=== PATIENT | female | born 1960 | race Caucasian/White ===

== ENCOUNTER 2019-07-30 18:04 | Emergency (ER) | payer MEDICARE, MEDICAID, SELFPAY ==
[2019-07-30 18:29] VITALS: BMI 25.4
[2019-07-30 18:35] VITALS: BP 174/75; PULSE 85; RESP 20; TEMP 37.1; O2SAT 91
--- NOTE | 2019-07-30 18:39 | XR_ITS ---
WS: [id number] CHEST 2 VIEWS HISTORY: SHORTNESS OF BREATH COMPARISON: 01/15/2008 Lungs: Mild hyperinflation. Benign granuloma in the central RIGHT lung measures 10 mm. Acute appearin g rib fracture is present at the RIGHT apex. There is adjacent pleural thickening which may be some h emorrhage. Cardiac size: Normal. Mediastinum/Aorta: Normal mediastinum. Bones: Acute appearing minimally displaced rib fracture involving third rib. XR/XR chest 2V* [id number] IMPRESSION: 1. Acute appearing RIGHT third rib fracture. There is adjacent pleural thicken ing which may be hemorrhage. If there is no history of trauma pathological frac ture is not excluded. Chest CT may be warranted for further evaluation. 2. Chronic emphysema and prior granulomatous disease.
--- NOTE | 2019-07-30 19:08 | ED_ITS ---
HPI - SOB/Dyspnea General: Chief Complaint: Shortness of Breath/Dyspnea Stated Complaint: sob Time Seen by Provider: 07/30/19 19:04 Source: patient Mode of arrival: ambulatory Limitations: no limitations History of Present Illness: HPI Narrative: Patient comes in today for a 2- month history of shortness of breath. Patient reports that she has been on antibiotics 3 different times with some minimal improvement with each round of antibiotic. Patient appears in no acute distress. Patient appears well. Patient appears in no pain. Patient does smoke about a pack a day but has not been smoking within the last week that much. Review of Systems General: Reports: 10 or more systems reviewed and unremarkable except in HPI and below Resp: Reports: shortness of breath PFSH ED PFSH: Social History Smoking and tobacco status: light tobacco smoker Physical Exam Const: COMMON NORMALS: no apparent distress and oriented x3 GENERAL APPEARANCE: cooperative HENMT: COMMON NORMALS: normocephalic, TM's normal bilaterally and external nose normal HEAD & SCALP: normal to inspection and normocephalic NOSE: external nose normal TYMPANIC MEMBRANE: TM's normal bilaterally MOUTH: oral and palatal mucosa normal THROAT: posterior oropharynx normal Eye: GENERAL EYE: normal appearance of both eyes Neck/C-Spine: COMMON NORMALS: full ROM Lymph: LYMPHATIC: no lymphadenopathy noted Chest: COMMONS NORMALS: inspection of chest normal Resp: EFFORT & INSPECTION: Yes able to speak in complete sentences (mild short of breath noted) and Yes symmetric chest movement AUSCULTATION: wheezes scattered wheezes Cardio: COMMON NORMALS: regular rate and regular rhythm RATE: regular rate RHYTHM: regular rhythm GI: COMMON NORMALS: non-tender : COMMON NORMALS: Yes no CVA tenderness BLADDER/KIDNEY EXAM: Yes no CVA tenderness Back/Pelvis: COMMON NORMALS: no CVA tenderness and thoracic and lumbar spine normal to inspection Extremity: COMMON NORMALS: normal to inspection Neuro: COMMON NORMALS: oriented x3 and moves all extremities Psych: COMMON NORMALS: mental status grossly normal and cooperative Skin: COMMON NORMALS: no rashes or lesions noted GENERAL SKIN EXAM: no rashes or lesions noted Course Vital Signs: Vital signs: Vital Signs Temperature 98.8 F 07/30/19 18:35 Pulse Rate 83 07/30/19 20:00 Respiratory Rate 20 H 07/30/19 20:00 Blood Pressure 174/75 07/30/19 18:35 Pulse Oximetry 91 07/30/19 20:00 MDM - SOB/Dyspnea MDM Narrative: Medical decision making narrative: Patient comes in today for complaints of shortness of breath. Patient reports that for the last 2 months she is had a lot of cough and congestion. Patient has been being treated by primary care and [place] but has not improved. Patient appears well. Lungs are coarse with decreased air movement throughout and wheezing. Vital signs are normal except for some elevation in blood pressure. Differential diagnosis includes but not limited to pneumonia, COPD, acute bronchitis, asthma. Chest x-ray noted no significant abnormality. White blood cell count was slightly elevated at 19,000 although this may be high due to medications such as steroids. Remainder of labs were not significant. Patient was treated with ipratropium and albuterol nebulizer treatment and had significant improvement after nebulizer. Patient will be continued on ipratropium albuterol nebulizer treatments and ketorolac as needed for pain. Reviewed with patient necessary treatment for a COPD and need for follow-up. Patient reports understanding agreed to plan and requested pulmonology referral for further evaluation. Lab Data: Labs: Lab Results 07/30/19 07/30/19 07/30/19 Range/Units 19:40 19:40 19:40 WBC 19.4 H (4.0-10.0) 10^3/ uL RBC 4.88 (4.1-5.3) 10^6/u L Hgb 13.3 (11.5-15.3) g/dL Hct 40.8 (37.0-47.0) % MCV 83.6 (81-99) fL MCH 27.3 L (28.0-34.0) pg MCHC 32.6 (30.0-36.0) g/dL RDW 12.8 (12.1-15.1) % Plt Count 413 H (130-400) 10^3/c mm MPV 10.7 H (7.4-10.4) fL Neut % (Auto) 75.3 % Lymph % (Auto) 20.2 % Hutchinson % (Auto) 3.7 % Eos % (Auto) 0.0 % Baso % (Auto) 0.1 % Neut # (Auto) 14.7 H (1.8-7.7) 10^3/u L Lymph # (Auto) 3.9 (0.8-4.8) 10^3/u L Hutchinson # (Auto) 0.7 (0.2-0.9) 10^3/u L Eos # (Auto) 0.0 (0.0-0.8) 10^3/u L Baso # (Auto) 0.0 (0.0-0.1) 10^3/u L Nucleated RBC % (a uto) 0 % Nucleated RBCs # 0.0 /100WBC Sodium 135 L (136-145) mmol/L Potassium 3.8 (3.5-5.1) mmol/L Chloride 95 L (98-107) mmol/L Carbon Dioxide 25 (22-29) mmol/L Anion Gap 18.8 (5-19) BUN 15 (6-20) mg/dL Creatinine 0.7 (0.5-0.9) mg/dL GFR Calculation 85.9 L (90-130) mL/min Glucose 117 H (65-115) mg/dL Calculated Osmolal ity 277 L (285-295) mOsm/k g Calcium 9.9 (8.5-10.5) mg/dL Total Bilirubin 0.2 (0.15-1.2) mg/dL AST 12 (0-32) U/L ALT 9 (0-33) U/L Alkaline Phosphata se 70 (35-105) IU/L Total Protein 8.1 (6.6-8.7) g/dL Albumin 4.4 (3.5-5.2) g/dL Globulin 3.7 (1.3-4.6) g/dL Urine Color Yellow (Yellow) Urine Appearance Clear (CLEAR) Urine pH 7 (5-7) Ur Specific Gravit y 1.005 (1.005-1.030) Urine Protein Neg (Negative) Urine Glucose (UA) Norm (Normal) Urine Ketones Negative (Negative) Urine Blood Neg (Negative) Urine Nitrate Negative (Negative) Urine Bilirubin Neg (NEGATIVE) Urine Urobilinogen Norm (Negative) mg/dL Ur Leukocyte Jessie ase Negative (Negative) Discharge Plan Discharge Patient Disposition: Home, Self-Care Clinical Impression: Acute exacerbation of chronic obstructive airways disease, Pain in rib Condition: Stable Prescriptions: New ipratropium-albuterol 0.5 mg-3 mg(2.5 mg base)/3 mL solution for nebulization 3 ml INHALATION QID Qty: 180 RF: 0 ketorolac 10 mg tablet 10 mg PO Q6H 5 Days Qty: 14 RF: 0 Discharge Orders: Discharge Order (Routine); Ordered 07/30/19 Ordered By: Vishnu Vega Discharge Diet: Usual diet Discharge Activity: Increase activity as tolerated Patient Instructions: Chronic Bronchitis (ED) Activity Restrictions/Additional Instructions: Use new nebulizer medication routinely four times a day, Use albuterol as needed every 4 hours for short of breath, continue medications as directed. Drink plenty of water with medication, Follow-up with primary care in one week. 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
--- NOTE | 2019-07-30 19:10 | ECG_ITS ---
Measurements Intervals Waterfall Rate: 82 P: 66 KS: 189 QRS: 48 QRSD: 86 T: 42 QT: 375 QTc: 440 SINUS RHYTHM POSSIBLE LEFT ATRIAL ENLARGEMENT [-0.1mV P WAVE IN V1/V2] ANTEROSEPTAL MYOCARDIAL INFARCTION , OF INDETERMINATE AGE [40+ ms Q WAVE IN V1-V4] No previous ECG available for comparison Electronically Signed On 07-31-2019 20:29:26 CDT by Zoe Putnam M.D. [email or web address]
[2019-07-30] MEDS: dexamethasone 10 mg/mL INJ IVP (19:35)
[2019-07-30] MEDS: ketorolac 30 mg/mL INJ 15 MG IVP (19:42)
[2019-07-30 19:46] LABS: Basophils % 0.1 %; Hematocrit 40.8 % (37.0-47.0); Hemoglobin 13.3 g/dL (11.5-15.3); Lymphocytes # 3.9 10^3/uL (0.8-4.8); Lymphocytes % 20.2 %; Mean Corpuscular HGB Conc 32.6 g/dL (30.0-36.0); Mean Corpuscular Hemoglobin 27.3 pg (28.0-34.0); Mean Corpuscular Volume 83.6 fL (81-99); Mean Platelet Volume 10.7 fL (7.4-10.4); Monocytes # 0.7 10^3/uL (0.2-0.9); Monocytes % 3.7 %; Neutrophils # 14.7 10^3/uL (1.8-7.7); Neutrophils % 75.3 %; Nucleated Red Blood Cells % 0 %; Platelet Count 413 10^3/cmm (130-400); Red Blood Count 4.88 10^6/uL (4.1-5.3); Red Cell Distribution Width 12.8 % (12.1-15.1); White Blood Count 19.4 10^3/uL (4.0-10.0)
[2019-07-30 19:57] VITALS: PULSE 85; RESP 18; O2SAT 88
[2019-07-30] MEDS: ipratropium-albuterol 3 mL Neb INHALATION (19:59)
[2019-07-30 20:00] VITALS: PULSE 83; RESP 20; O2SAT 91
[2019-07-30 20:00] LABS: Alanine Aminotransferase 9 U/L (0-33); Albumin Level 4.4 g/dL (3.5-5.2); Alkaline Phosphatase 70 IU/L (35-105); Anion Gap 18.8 (5-19); Aspartate Amino Transferase 12 U/L (0-32); Blood Urea Nitrogen 15 mg/dL (6-20); Calcium 9.9 mg/dL (8.5-10.5); Carbon Dioxide 25 mmol/L (22-29); Chloride 95 mmol/L (98-107); Creatinine Clr Calc Pharmacy 76.4482; Globulin 3.7 g/dL (1.3-4.6); Glomerular Filtration Rate 85.9 mL/min (90-130); Glucose 117 mg/dL (65-115); Osmolality Calculated 277 mOsm/kg (285-295); Potassium 3.8 mmol/L (3.5-5.1); Sodium 135 mmol/L (136-145); Total Bilirubin 0.2 mg/dL (0.15-1.2); Total Protein 8.1 g/dL (6.6-8.7)
[2019-07-30 20:05] LABS: Add Urine Microscopic? NO
[2019-07-30 20:21] LABS: Bilirubin Urine Neg (NEGATIVE); Blood Urine Neg (Negative); Glucose Urine UA Norm (Normal); Ketones Urine Negative (Negative); Leukocyte Esterase Urine Negative (Negative); Nitrate Urine Negative (Negative); Protein Urine Neg (Negative); Specific Gravity, Urine 1.005 (1.005-1.030); Urine Appearance Clear (CLEAR); Urine Color Yellow (Yellow); Urobilinogen Urine Norm (Negative); pH Urine 7 (5-7)
[2019-07-30 21:20] VITALS: BP 157/68; PULSE 85; RESP 16; O2SAT 92
--- NOTE | 2019-07-31 13:51 | DCPLANNER ---
regional loss prevention manager had message to schedule a follow up appointment for patient with [facility]. regional loss prevention manager called [facility], spoke with Christelle, gave clinic patients information. A follow up appointment was scheduled for , August 08, 2019 at 11:[address] Welsh. Clinic will call patient with appointment information.
--- NOTE | 2019-09-05 14:17 | DCPLANNER ---
Patients appointment scheduled for 08.08.19 with [facility] was cancelled.
== END 2019-07-30 21:42 | disposition home or self-care (01) ==
PROVIDERS: Emergency Medicine; Emergency Provider Nurse Practitioner Family
DX: J44.1 Chronic obstructive pulmonary disease with (acute) exacerbation (principal); R07.81 Pleurodynia; F17.210 Nicotine dependence, cigarettes, uncomplicated
CPT/HCPCS: 12345; 36415; 71046; 80053; 81003; 85025; 93005; 94640; 96374; 96375; 99282; 99284; J1100; J1885

== ENCOUNTER → 2020-07-24 09:49 | Outpatient (BNVA) | payer MEDICARE, MEDICAID, SELFPAY | PROVIDERS: PCP Nurse Practitioner Family; Visit Provider Internal Medicine Pulmonary Disease | DX: J44.9 Chronic obstructive pulmonary disease, unspecified (principal); J98.4 Other disorders of lung | CPT/HCPCS: 87635 ==

== ENCOUNTER 2020-07-29 13:15 | Outpatient (CLI) | payer MEDICARE, MEDICAID, SELFPAY ==
--- NOTE | 2020-07-29 13:30 | CT_ITS ---
WS: [id number] CT CHEST CT-HIGH RESOLUTION, NONCONTRAST. HISTORY: Interstitial lung disease. Technique: High-resolution chest CT is performed in inspiration, expiration, supine and prone positio raad. All CT scans at [facility] use at least one of these dose optimization techniques: automa tere exposure control; mA and/or kV adjustment per patient size (includes targeted exams where dose is matched to clinical indication); or iterative reconstruction. DLP: 829.86 mGy.cm COMPARISON: 08/23/2019 Findings: Mild hyperexpansion. There are a few scattered bilateral groundglass opacifications with in spiration persisting. With expiration there is a decrease in lung volumes. Increasing mosaic attenuat ion bilaterally. There is very mild mixed air trapping in the lower lung gallego bilaterally. Benign g ranuloma RIGHT lower lobe. The vessels appear larger in the area of groundglass attenuation suggestin g hyperperfused lung adjacent to oligemia. Could be due to chronic emboli. There is no bronchiectasis or significant honeycombing. There is some very minimal interstitial thickening of the distal airway s. No pneumonia. No pleural effusion. Normal-sized heart. CT/CT chest wo con [id number] Impression: 1. Mild groundglass attenuation with air trapping. Consider chronic pulmonary embolism, hypersensitivity pneumonia and asthma. 2. No bronchiectasis or honeycombing.
--- NOTE | 2020-07-29 13:30 | PFTS_ITS ---
Date of Study:07/29/20 Date of Dictation: 07/31/2020 MECHANICS: Postbronchodilator forced vital capacity (FVC) is reduced Postbronchodilator forced expiratory volume in one second (FEV1) is reduced 75%. FEV1/FVC is normal. There is no significant response to bronchodilators.. FLOW VOLUME LOOP: Normal. LUNG VOLUMES: Total lung capacity (TLC) is reduced. Residual volume (RV) is mildly reduced 67%. DIFFUSING CAPACITY FOR CARBON MONOXIDE: Mild reduction in gas transfer 61% normalized when adjusted to ventilation. . INTERPRETATION: The postbronchodilator spirometry and lung volumes consistent with mild restriction. There is mild gas transfer defect normalized when adjusted to ventilation. Correlate clinically. MTDD
--- NOTE | 2020-07-29 14:46 | PFTS_ITS ---
Date of Study:07/29/20 Date of Dictation: 07/31/2020 MECHANICS: Postbronchodilator forced vital capacity (FVC) is reduced Postbronchodilator forced expiratory volume in one second (FEV1) is moderately reduced 75%. FEV1/FVC is normal. There is no significant response to bronchodilators.. FLOW VOLUME LOOP: Normal. LUNG VOLUMES: Total lung capacity (TLC) is reduced. Residual volume (RV) is mildly reduced 67%. DIFFUSING CAPACITY FOR CARBON MONOXIDE: Mild reduction in gas transfer 61% normalized when adjusted to ventilation. . INTERPRETATION: The postbronchodilator spirometry and lung volumes consistent with mild restriction. There is mild gas transfer defect normalized when adjusted to ventilation. Correlate clinically. MTDD
[2020-07-29 15:02] VITALS: O2SAT 97
== END 2020-07-29 13:16 | disposition home or self-care (01) ==
LOC: RAD 13:16
PROVIDERS: PCP Family Medicine; Visit Provider Internal Medicine Pulmonary Disease
DX: J84.9 Interstitial pulmonary disease, unspecified (principal)
CPT/HCPCS: 71250; 94060; 94726; 94729; J7611

== ENCOUNTER → 2020-08-04 08:33 | Outpatient (BNVA) | payer MEDICARE, MEDICAID, SELFPAY | PROVIDERS: PCP Family Medicine; Visit Provider Internal Medicine Rheumatology | DX: M05.79 Rheumatoid arthritis with rheumatoid factor of multiple sites without organ or systems involvement (principal); R76.8 Other specified abnormal immunological findings in serum; Z79.899 Other long term (current) drug therapy; Z79.52 Long term (current) use of systemic steroids; Z11.59 Encounter for screening for other viral diseases; Z11.1 Encounter for screening for respiratory tuberculosis; J98.4 Other disorders of lung; F17.210 Nicotine dependence, cigarettes, uncomplicated | CPT/HCPCS: 99204 ==

== ENCOUNTER → 2020-09-14 08:40 | Outpatient (BNVA) | payer MEDICARE, MEDICAID, SELFPAY | PROVIDERS: PCP Family Medicine; Visit Provider Internal Medicine Rheumatology | DX: Z11.59 Encounter for screening for other viral diseases (principal); M19.90 Unspecified osteoarthritis, unspecified site; R76.8 Other specified abnormal immunological findings in serum; Z79.899 Other long term (current) drug therapy; M45.9 Ankylosing spondylitis of unspecified sites in spine; Z01.89 Encounter for other specified special examinations; Z11.1 Encounter for screening for respiratory tuberculosis | CPT/HCPCS: 36415; 80076; 82565; 85025; 86140; 86480; 86704; 86803; 86812; 87340 ==

== ENCOUNTER → 2020-09-30 12:46 | Outpatient (BNVA) | payer MEDICARE, MEDICAID, SELFPAY | PROVIDERS: PCP Family Medicine; Visit Provider Internal Medicine Rheumatology | DX: M05.79 Rheumatoid arthritis with rheumatoid factor of multiple sites without organ or systems involvement (principal); J98.4 Other disorders of lung; Z79.899 Other long term (current) drug therapy; Z79.52 Long term (current) use of systemic steroids; F17.210 Nicotine dependence, cigarettes, uncomplicated | CPT/HCPCS: 99214 ==

== ENCOUNTER 2021-05-21 12:44 | Outpatient (CLI) | payer MEDICARE, MEDICAID, SELFPAY ==
--- NOTE | 2021-05-21 12:56 | USCV_ITS ---
Kamini Zavaleta Age: 60 Gender: F : 1960 Exam Date: 05/21/2021 13:10 Ordering Phys: Tracie Cantor Technologist: Exam Location: [facility] – [place], [place] Indication: INDGESTION BP: 130 / 8 HR: 77 Rhythm: Sinus Technical Quality: Adequate MEASUREMENTS (Male / Female) Normal Values 2D ECHO LV Diastolic Diameter PLAX 2.4 cm 4.2 - 5.9 / 3.9 - 5.3 cm LV Systolic Diameter PLAX 2.0 cm IVS Diastolic Thickness 1.0 cm 0.6 - 1.0 / 0.6 - 0.9 cm IVS Systolic Thickness 1.3 cm LVPW Diastolic Thickness 0.9 cm 0.6 - 1.0 / 0.6 - 0.9 cm LVPW Systolic Thickness 1.1 cm LVOT Diameter 2.0 cm LV Ejection Fraction 2D Teich 26.7 % LV Ejection Fraction MOD 2C 71.8 % LV Ejection Fraction 2C AL 72.8 % LA Diameter 3.1 cm Aorta at Sinotubular Diameter 2.5 cm M-MODE Aortic Annulus Diameter 3.0 cm LA Ao Ratio MM 1.1 MV E Point Septal Separation 0.4 cm DOPPLER AV Peak Velocity 124.0 cm/s LVOT Peak Velocity 87.0 cm/s AV Area Cont Eq vti 2.2 cm squared AV Area Cont Eq pk 2.3 cm squared MV Area PHT 5.0 cm squared Mitral E to A Ratio 0.7 MV E' Velocity 31.5 cm/s Mitral E to MV E' Ratio 6.8 Mitral E to LV E' Lateral Ratio 8.4 Mitral E to LV E' Septal Ratio 5.7 TR Peak Velocity 121.0 cm/s TR Peak Gradient 5.9 mmHg TV Peak E Velocity 84.0 cm/s Right Atrial Pressure 3.0 mmHg Pulmonary Artery Systolic Pressu 8.9 mmHg PV Peak Velocity 101.0 cm/s FINDINGS Left Ventricle Normal left ventricular size and systolic function, EF 75 %. No regional wall motion abnormalities. Mild left ventricular hypertrophy. Grade I/IV diastolic dysfunction (abnormal relaxation filling pattern), normal to mildly elevated filling pressures. Right Ventricle The right ventricle is normal in size and function. Right Atrium Normal right atrial size. Left Atrium Normal left atrial size. Mitral Valve No gross abnormalities noted Aortic Valve No gross abnormalities noted Tricuspid Valve No gross abnormalities noted Pulmonic Valve Pulmonic valve not well visualized. Pericardium Normal pericardium without effusion. Aorta Normal ascending aorta dimension. CONCLUSIONS Normal left ventricular size and systolic function, EF 75 %. No regional wall motion abnormalities. Mild left ventricular hypertrophy. Grade I/IV diastolic dysfunction (abnormal relaxation filling pattern), normal to mildly elevated filling pressures. Normal cardiac chamber sizes No significant stenotic or regurgitant lesions There is no pericardial effusion. There are no intracardiac masses. No previous study is available for comparison. Dr Zoe Putnam MD FACC (Electronically Signed) Final Date: 21 May 2021 14:52 S
== END 2021-05-21 12:45 | disposition home or self-care (01) ==
PROVIDERS: PCP Family Medicine; Visit Provider Nurse Practitioner Family
DX: K30 Functional dyspepsia (principal)
CPT/HCPCS: 93306

== ENCOUNTER → 2021-06-22 10:26 | Outpatient (BNVA) | payer MEDICARE, MEDICAID, SELFPAY | PROVIDERS: PCP Family Medicine; Visit Provider Internal Medicine Rheumatology | DX: M05.79 Rheumatoid arthritis with rheumatoid factor of multiple sites without organ or systems involvement (principal); J32.9 Chronic sinusitis, unspecified; Z79.899 Other long term (current) drug therapy; Z79.52 Long term (current) use of systemic steroids; J98.4 Other disorders of lung | CPT/HCPCS: 80076; 82565; 85025; 86140; 99214 ==

== ENCOUNTER → 2021-07-14 08:39 | Outpatient (BNVA) | payer MEDICARE, MEDICAID, SELFPAY | PROVIDERS: PCP Family Medicine; Visit Provider Internal Medicine Pulmonary Disease | DX: J44.9 Chronic obstructive pulmonary disease, unspecified (principal); J98.4 Other disorders of lung; R76.8 Other specified abnormal immunological findings in serum; F17.210 Nicotine dependence, cigarettes, uncomplicated; M05.10 Rheumatoid lung disease with rheumatoid arthritis of unspecified site; Z99.81 Dependence on supplemental oxygen | CPT/HCPCS: 99214 ==

== ENCOUNTER → 2021-10-13 10:55 | Outpatient (BNVA) | payer MEDICARE, MEDICAID, SELFPAY | PROVIDERS: PCP Family Medicine; Visit Provider Internal Medicine Pulmonary Disease | DX: J44.9 Chronic obstructive pulmonary disease, unspecified (principal); M05.79 Rheumatoid arthritis with rheumatoid factor of multiple sites without organ or systems involvement; M05.10 Rheumatoid lung disease with rheumatoid arthritis of unspecified site; R76.8 Other specified abnormal immunological findings in serum; Z86.16 Personal history of COVID-19; Z87.891 Personal history of nicotine dependence | CPT/HCPCS: 99214 ==

== ENCOUNTER → 2021-11-04 10:47 | Outpatient (BNVA) | payer MEDICARE, MEDICAID, SELFPAY | PROVIDERS: PCP Family Medicine; Visit Provider Internal Medicine Rheumatology | DX: M05.79 Rheumatoid arthritis with rheumatoid factor of multiple sites without organ or systems involvement (principal); M05.10 Rheumatoid lung disease with rheumatoid arthritis of unspecified site; J32.9 Chronic sinusitis, unspecified; Z79.899 Other long term (current) drug therapy; Z79.52 Long term (current) use of systemic steroids | CPT/HCPCS: 36415; 80076; 82565; 85025; 86140; 99214 ==

== ENCOUNTER 2022-01-10 08:24 | Outpatient (CLI) | payer MEDICARE, MEDICAID, SELFPAY ==
--- NOTE | 2022-01-10 09:13 | MM_ITS ---
WS: [id number] BILATERAL SCREENING DIGITAL TOMOSYNTHESIS MAMMOGRAM WITH CAD HISTORY: SCREEN COMPARISON: 06/06/2017 Bilateral CC and MLO views with tomosynthesis and synthetic mammography submitted. Computer aided det ection analyzed. Breast composition: There are scattered areas of fibroglandular density. No suspicious masses, microc alcifications or architectural distortion. Benign calcifications in each breast. MM/[place] [id number] IMPRESSION: BI-RADS: 2-Benign FOLLOW UP: 1 Year Follow-up
== END 2022-01-10 08:25 | disposition home or self-care (01) ==
LOC: RAD 08:25
PROVIDERS: PCP Family Medicine; Visit Provider Registered Nurse
DX: Z12.31 Encounter for screening mammogram for malignant neoplasm of breast (principal)
CPT/HCPCS: 77063; 77067

== ENCOUNTER → 2022-04-05 09:08 | Outpatient (BNVA) | payer MEDICARE, MEDICAID, SELFPAY | PROVIDERS: PCP Family Medicine; Visit Provider Internal Medicine Rheumatology | DX: M05.79 Rheumatoid arthritis with rheumatoid factor of multiple sites without organ or systems involvement (principal); M05.10 Rheumatoid lung disease with rheumatoid arthritis of unspecified site; Z79.899 Other long term (current) drug therapy | CPT/HCPCS: 36415; 80076; 82565; 85025; 86140; 99214 ==

== ENCOUNTER → 2023-01-04 14:28 | Outpatient (BNVA) | payer MEDICARE, MEDICAID, SELFPAY | PROVIDERS: PCP Family Medicine; Visit Provider Nurse Practitioner Family | DX: L57.0 Actinic keratosis (principal); L81.4 Other melanin hyperpigmentation; L57.8 Other skin changes due to chronic exposure to nonionizing radiation; L82.1 Other seborrheic keratosis | CPT/HCPCS: 17000; 99213 ==

== ENCOUNTER 2024-06-11 10:48 | Outpatient (CLI) | payer MEDICARE, MEDICAID, SELFPAY ==
--- NOTE | 2024-06-11 10:54 | XR_ITS ---
WS: [id number] Exam: XR chest 2V* [id number] Date/Time of Exam: 06/11/2024 11:18 AM Reason For Exam: J06.9 - Acute upper respiratory infection, unspecified Comparison 06/25/2020. Lungs are clear and fully expanded. Normal cardiomediastinal silhouette. No pleural effusions. Several old RIGHT upper rib fractures. Calcified granuloma mid RIGHT lung. XR/XR chest 2V* [id number] IMPRESSION: 1. No acute cardiopulmonary finding.
== END 2024-06-11 10:49 | disposition home or self-care (01) ==
LOC: RAD 10:50
PROVIDERS: PCP Nurse Practitioner Family; Visit Provider Nurse Practitioner Family
DX: J06.9 Acute upper respiratory infection, unspecified (principal); R53.83 Other fatigue; I10 Essential (primary) hypertension; Z87.81 Personal history of (healed) traumatic fracture; J84.10 Pulmonary fibrosis, unspecified
CPT/HCPCS: 71046; 80053; 80061; 84443; 85025

== ENCOUNTER → 2024-07-12 10:43 | Outpatient (BNVA) | payer MEDICARE, MEDICAID, SELFPAY | PROVIDERS: PCP Nurse Practitioner Family; Visit Provider Nurse Practitioner Family | DX: K90.49 Malabsorption due to intolerance, not elsewhere classified (principal); S90.569A Insect bite (nonvenomous), unspecified ankle, initial encounter; W57.XXXA Bitten or stung by nonvenomous insect and other nonvenomous arthropods, initial encounter | CPT/HCPCS: 86003; 86008 ==

== ENCOUNTER → 2024-12-04 08:49 | Outpatient (BNVA) | payer MEDICARE, MEDICAID, SELFPAY | PROVIDERS: PCP Nurse Practitioner Family; Visit Provider Nurse Practitioner Family | DX: Z11.52 Encounter for screening for COVID-19 (principal) | CPT/HCPCS: 87426 ==

== ENCOUNTER → 2025-01-09 08:55 | Outpatient (BNVA) | payer MEDICARE, MEDICAID, SELFPAY | PROVIDERS: PCP Nurse Practitioner Family; Visit Provider Nurse Practitioner Family | DX: L57.8 Other skin changes due to chronic exposure to nonionizing radiation (principal); L81.4 Other melanin hyperpigmentation; D22.5 Melanocytic nevi of trunk; L82.1 Other seborrheic keratosis; L57.0 Actinic keratosis | CPT/HCPCS: 17000; 99213 ==

== ENCOUNTER 2025-01-23 11:26 | Outpatient (CLI) | payer MEDICARE, MEDICAID, SELFPAY ==
--- NOTE | 2025-01-23 12:15 | CT_ITS ---
WS: [id number] LDCT LUNG CANCER SCREENING TECHNIQUE: Noncontrast CT of the chest with coronal and sagittal reformatted images. CLINICAL INFORMATION: Z87.891 - Personal history of nicotine dependence COMPARISON: 2020 DLP: 58.31 mGy.cm DIvol: Mean CTDIvol: 1.10 (mGy) All CT scans at [facility] use at least one of these dose optimization techniques: automated exposure control; mA and/or kV adjustment per patient size (includes targeted exams where dose is matched to clinical indication); or iterative reconstruction. FINDINGS: Mild chronic emphysematous changes. A few hazy groundglass opacities similar to 202. Calcified granuloma RIGHT lower lobe. Tiny noncalcified nodule RIGHT upper lobe. Tiny LEFT perifissural nodule. Small nodule RIGHT lower lobe. No suspicious pulmonary parenchymal abnormalities. Aortic calcification. Coronary calcification. Normal caliber ascending thoracic aorta. Aneurysmal distal aortic arch 3.6 cm in maximum dimension. This is new since 2020. Recommend further evaluation with CTA. Cholecystectomy clips. Normal LEFT adrenal gland. Small RIGHT adrenal adenoma measuring 9 mm. Normal GE junction. CT/CT lung screening [id number] IMPRESSION: Aneurysmal distal aortic arch 3.6 cm in maximum dimension. This is new since . Recommend further evaluation with CTA. LUNG-RADS: 2S-Benign Appearance or Behavior with Significant Findings FOLLOW UP: 12 Month: Continue annual screening with LDCT
--- NOTE | 2025-01-23 13:00 | MM_ITS ---
WS: [id number] BILATERAL SCREENING DIGITAL TOMOSYNTHESIS MAMMOGRAM WITH CAD HISTORY: Z12.39 - Encounter for other screening for malignant neop... COMPARISON: 01/10/2022, 06/06/2017 Bilateral CC and MLO views with tomosynthesis and synthetic mammography submitted. Computer aided detection analyzed. Breast composition: There are scattered areas of fibroglandular density. No suspicious masses, microcalcifications or architectural distortion. Benign calcifications. MM/MM scr BI tomosynthesis [id number] IMPRESSION: BI-RADS: 2 - Benign. FOLLOW UP: 1 Year Follow-up
--- NOTE | 2025-01-23 13:30 | XR_ITS ---
WS: [id number] SCREENING DEXA SCAN [employer] CLINICAL INFORMATION: M81.0 - Age-related osteoporosis without current patholog... FINDINGS: The L1-L4 bone mineral density measures 0.801 g/cm2. This corresponds to a T score score of -3.2 and Z score of -1.7. Left femoral neck bone mineral density measures 0.766 g/cm2. This corresponds to a T score of -1.9 and Z score of -0.8. Right femoral neck bone mineral density measures 0.801 g/cm2. This corresponds to a T score -1.6of and Z score of -0.5. Mean femoral neck bone mineral density measures 0.783 g/cm2. This corresponds to a T score of -1.8 and Z score of -0.7. XR/XR DEXA axial skeleton* [id number] IMPRESSION: Osteoporosis lumbar spine. Osteopenia femoral necks. Patient's FRAX calculated 10 year probability for major osteoporotic fracture i s 23.7% and osteoporotic hip fracture is 7.5%.
== END 2025-01-23 11:27 | disposition home or self-care (01) ==
LOC: RAD 11:28
PROVIDERS: PCP Nurse Practitioner Family; Visit Provider Nurse Practitioner Family
DX: Z12.31 Encounter for screening mammogram for malignant neoplasm of breast (principal); Z13.820 Encounter for screening for osteoporosis; Z12.2 Encounter for screening for malignant neoplasm of respiratory organs; R92.323 Mammographic fibroglandular density, bilateral breasts; M85.89 Other specified disorders of bone density and structure, multiple sites; M81.6 Localized osteoporosis [Lequesne]; J43.8 Other emphysema; R91.8 Other nonspecific abnormal finding of lung field; I25.84 Coronary atherosclerosis due to calcified coronary lesion; Z90.49 Acquired absence of other specified parts of digestive tract; Z96.89 Presence of other specified functional implants; I71.22 Aneurysm of the aortic arch, without rupture
CPT/HCPCS: 71271; 77063; 77067; 77080

== ENCOUNTER 2025-03-04 11:51 | Outpatient (CLI) | payer MEDICARE, MEDICAID, SELFPAY ==
--- NOTE | 2025-03-04 12:00 | CT_ITS ---
WS: [id number] CTA THORACIC TECHNIQUE: Contrast enhanced CTA of the thoracic aorta with coronal and sagittal reformatted images and maximum intensity projection (MIP) images. CLINICAL INFORMATION: I71.40 - Abdominal aortic aneurysm, without rupture, unsp... COMPARISON: CT 01/23/25 DLP: 535.[address] scans at [facility] use at least one of these dose optimization techniques: automated exposure control; mA and/or kV adjustment per patient size (includes targeted exams where dose is matched to clinical indication); or iterative reconstruction. FINDINGS: Normal caliber ascending thoracic aorta. Aortic calcification. Coronary calcification. Proximal pulmonary arteries are normal. Normal caliber descending thoracic aorta. Celiac and SMA are patent in the upper abdomen. Proximal renal arteries are patent. Lobulated exophytic saccular aneurysm extending off the dorsal aortic arch measures approximately 2.5 x 1.3 cm. Aneurysm neck measures approximately 1.5 cm. No mediastinal or hilar lymphadenopathy. No axillary lymphadenopathy. Adrenal glands are normal. Small esophageal hiatal hernia. Mild thoracic curve. Fibrosis in the lung apices. Mild chronic emphysematous changes. Calcified granuloma RIGHT lower lobe. CT/CT angio chest [id number] IMPRESSION: 1. 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 Recommend vascular surgery consultation. 2. Small esophageal hiatal hernia. 3. Cholecystectomy clips. 4. No other acute findings.
[2025-03-04 12:32] LABS: Blood Urea Nitrogen 8 mg/dL (8-23)
[2025-03-04] MEDS: iohexol 350 mg/mL 500 mL Btl (per mL) IV (12:43)
== END 2025-03-04 11:52 | disposition home or self-care (01) ==
PROVIDERS: PCP Nurse Practitioner Family; Visit Provider Nurse Practitioner Family
DX: I71.40 Abdominal aortic aneurysm, without rupture, unspecified (principal); I71.22 Aneurysm of the aortic arch, without rupture; K44.9 Diaphragmatic hernia without obstruction or gangrene; Z90.49 Acquired absence of other specified parts of digestive tract; J84.10 Pulmonary fibrosis, unspecified; M43.8X4 Other specified deforming dorsopathies, thoracic region; J43.8 Other emphysema
CPT/HCPCS: 71275; 82565; 84520